=== PATIENT | male | born 2005 | race Caucasian/White ===

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

== ENCOUNTER 2025-04-29 19:18 | Emergency (ER) | payer OTHER, BC, SELFPAY ==
--- OUTSIDE RECORDS SUMMARY | 2011-03-12 04:30 | XMS_ITS | Continuity of Care Document ---
Author Organization [facility] Address [address] [place] [address] Phone Care Team Providers Care Inside Account Representative Name Role Phone Celec DO, Ritika Unavailable Unavailable Allergies, Adverse Reactions, Alerts Substance Reaction Status Criticality No Known allergies Medications Medication Instructions Dosage Effective Dates (start - stop) Status Comments albuterol sulfate HFA 90 mcg/Actuation Aerosol Inhaler inhale 1 puff by inhalation route 4 - 6 hours for 30 days as needed 1 puff - No Longer Active Procedures Procedure Date MMR VACCINE, MT CHICKEN POX VACCINE, MT DTAP-IPV VACC 4-6 YR IM PREV VISIT, NEW, AGE 5-11 PREV VISIT, NEW, AGE 5-11 DTAP-IPV VACC 4-6 YR IM MMR VACCINE, MT CHICKEN POX VACCINE, MT Advance Directives Directive Yes / No Effective Date File Name Resuscitation Not Answered N/A N/A Life Support Not Answered N/A N/A Intubation Not Answered N/A N/A Antibiotics Not Answered N/A N/A IV Fluid Support Not Answered N/A N/A Tube Feed Not Answered N/A N/A Other Directive N/A N/A WARNING:The information contained in this section is historical and is provided for information only and does not constitute a legal document or any assurance that the information is still accurate. Please verify the information with the siddiqi of the legal document before using it for clinical purposes. Encounters Encounter Description Practice Location Reason(s) For Visit Diagnoses Date Provider Providers Copied on Encounter PREV VISIT, NEW, AGE 5-11 [facility], [address] [place], [place], [id number], tel:[phone] [facility] physical (school) (chief complaint) AsthmaNeed for prophylactic vaccination with xckbvns-xyjxr-ldsmc la (MMR) vaccineNeed for prophylactic vaccination and inoculation against varicellaNeed for prophylactic vaccination and inoculation against other combinations of diseasesRoutine or child health checkAsthmaRoutine or child health check 1 Celec DO Ritika. [address] [place] [address], [phone] , [place]. tel:[phone] Family History Family Member Type Diagnosis Age At Onset Mother Problem (finding) Alive and well Paternal grandmother Problem (finding) Renal disease Father Problem (finding) hypertension Mother Problem (finding) Valvular heart disease Father Problem (finding) Alive and well Paternal grandmother Problem (finding) hypertension Immunizations Vaccine Date Status Comments Kinrix administered Source: New Imm unization Record Varicella administered Source: New Imm unization Record MMR administered Source: New Imm unization Record Payers Payer name Insurance type Covered republican ID Authoriza tirodolfo(s) Medical [place] CI [id number] Social History Type Description Quantity Date Captured Comments Alcohol Use Details Unknown Caffeine Use Details Unknown Tobacco Use Status No Information Smoking Status No Information Sex Male Vital Signs Date / Time: Height Weight BMI Pulse Rate Blood Pressure Temperature Respiratory Rate Body Surface Area Head Circumference Head Circ. Percentile Wt./Shaheed. Percentile BMI percentile Pulse Ox Inhaled Ox 10:04 AM 44.30 in 58.00 lbs 89 /min 92/60 mm[Hg] 20 /min Chief Complaint And Reason For Visit From encounter dated '03/12/2011 09:30'. physical (school) (chief complaint) Reason For Referral Reason For Referral No Information History Of Present Illness Encounter Date Complaint History Of Prese nt Illness No Information Functional Status Date Functional Assessmen t No Information Instructions Date Instruction Additional Infor mation No Information Assessments Type Assessment Date No Information Mental Status Date Cognitive Assessment Orientation - [place] ed to time, place, person, situation.Normal Orientation Patient Care Teams Name Effective Dates (start - stop) Status Members No Information
--- OUTSIDE RECORDS SUMMARY | 2011-03-12 04:30 | XMS_ITS | Continuity of Care Document ---
Author Organization [facility] Address [address] [place] [address] Phone Care Team Providers Care Recreation Therapist Name Role Phone Celec DO, Ritika Unavailable Unavailable Allergies, Adverse Reactions, Alerts Substance Reaction Status Criticality No Known allergies Medications Medication Instructions Dosage Effective Dates (start - stop) Status Comments albuterol sulfate HFA 90 mcg/Actuation Aerosol Inhaler inhale 1 puff by inhalation route 4 - 6 hours for 30 days as needed 1 puff - No Longer Active Procedures Procedure Date MMR VACCINE, [place] CHICKEN POX VACCINE, [place] DTAP-IPV VACC 4-6 YR IM PREV VISIT, NEW, AGE 5-11 PREV VISIT, NEW, AGE 5-11 DTAP-IPV VACC 4-6 YR IM MMR VACCINE, MO CHICKEN POX VACCINE, MO Advance Directives Directive Yes / No Effective [...] on Encounter PREV VISIT, NEW, AGE 5-11 [facility], [address] [place], [place], [id number], tel:[phone] [facility] physical (school) (chief complaint) AsthmaNeed for prophylactic vaccination with mdjflen-gzqdh-miplt la (MMR) vaccineNeed for prophylactic vaccination and inoculation against varicellaNeed for prophylactic vaccination and inoculation against other combinations of diseasesRoutine or child health checkAsthmaRoutine or child health check 1 Celec DO Ritika. [address] [place] [address], [id number] , [place]. tel:[phone] Family History Family Member Type Diagnosis Age [...] Record Payers Payer name Insurance type Covered democrat ID Authoriza tirodolfo(s) Medical [place] CI [id number] Social History Type Description Quantity Date Captured [...] Mental Status Date Cognitive Assessment Orientation - [place] ed to time, place, person, situation.Normal Orientation Patient Care Teams Name Effective Dates (start - stop) Status Members No Information
--- OUTSIDE RECORDS SUMMARY | 2011-03-12 04:30 | XMS_ITS | Continuity of Care Document ---
Author Organization [facility] Address [address] [place] [address] Phone Care Team Providers Care Manager Desktop Name Role Phone Celec DO, Ritika Unavailable Unavailable Allergies, Adverse Reactions, Alerts Substance Reaction Status Criticality No Known allergies Medications Medication Instructions Dosage Effective Dates (start - stop) Status Comments albuterol sulfate HFA 90 mcg/Actuation Aerosol Inhaler inhale 1 puff by inhalation route 4 - 6 hours for 30 days as needed 1 puff - No Longer Active Procedures Procedure Date MMR VACCINE, [place] CHICKEN POX VACCINE, [place] DTAP-IPV VACC 4-6 YR IM PREV VISIT, NEW, AGE 5-11 PREV VISIT, NEW, AGE 5-11 DTAP-IPV VACC 4-6 YR IM MMR VACCINE, [place] CHICKEN POX VACCINE, [place] Advance Directives Directive Yes / No Effective [...] on Encounter PREV VISIT, NEW, AGE 5-11 [facility], [address] [place], [place], [id number], tel:[phone] [facility] physical (school) (chief complaint) AsthmaNeed for prophylactic vaccination with bcflbtv-mvfsh-kkijp la (MMR) vaccineNeed for prophylactic vaccination and inoculation against varicellaNeed for prophylactic vaccination and inoculation against other combinations of diseasesRoutine or child health checkAsthmaRoutine or child health check 1 Celec DO Ritika. [address] [place] [address], [phone] , [place]. tel:[phone] Family History Family Member Type Diagnosis Age [...] Record Payers Payer name Insurance type Covered alliance party ID Authoriza tirodolfo(s) Medical [place] CI [id number] Social History Type Description Quantity Date Captured [...] Mental Status Date Cognitive Assessment Orientation - [place] ed to time, place, person, situation.Normal Orientation Patient Care Teams Name Effective Dates (start - stop) Status Members No Information
[2025-04-29] VITALS (13 sets, daily range): BP systolic 128–151; BP diastolic 65–92; PULSE 88–101; TEMP 36.9; O2SAT 93–98; BMI 35.6
[2025-04-29] MEDS: MORPHINE SULFATE 2 MG/ML SYRINGE IV ×2 (20:08→20:48)
[2025-04-29] MEDS: 0.9 % SODIUM CHLORIDE 1,000 ML 1000 ML IV (20:11)
[2025-04-29] MEDS: CEFAZOLIN SODIUM/DEXTROSE,ISO 1 GM/50 ML PREMIX IV (20:14)
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
[2025-04-29] MEDS: KETOROLAC TROMETHAMINE 30 MG/ML VIAL IVP (20:47)
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
[2025-04-29] MEDS: BACITRACIN OINTMENT 28.4 GM TUBE 1 APPLIC TOPICAL (21:34)
== END 2025-04-29 23:53 | disposition short-term general hospital (02) ==
PROVIDERS: Emergency Provider Emergency Medicine
DX: S52.021B Displaced fracture of olecranon process without intraarticular extension of right ulna, initial encounter for open fracture type I or II (principal); S41.101A Unspecified open wound of right upper arm, initial encounter; S81.802A Unspecified open wound, left lower leg, initial encounter; V86.56XA Driver of dirt bike or motor/cross bike injured in nontraffic accident, initial encounter
CPT/HCPCS: 29105; 73080; 73090; 73110; 73130; 96365; 96375; 96376; 99285; J0690; J1885; J2270; J2405